=== PATIENT | female | born 1945 | race Two or more races ===

== ENCOUNTER 2021-12-30 15:18 | Emergency (ER) | payer OTHER ==
[2021-12-30 15:34] VITALS: RESP 20; TEMP 98.2; BMI 42.9
[2021-12-30 18:53] VITALS: BP 121/94; PULSE 90
== END 2021-12-30 21:47 | disposition home or self-care (01) ==
LOC: JER 15:18
DX: I48.91 Unspecified atrial fibrillation (principal)
CPT/HCPCS: 71045-TC-FY; 93005; 93010; 99284-25